=== PATIENT | female | born 1955 | race Caucasian/White ===

== ENCOUNTER 2017-03-12 14:53 | Emergency (ER) | payer OTHER ==
--- NOTE | 2017-03-12 15:11 | PDOC ---
History of Present Illness - General History Source: Patient Exam Limitations: No Limitations - History of Present Illness Initial Comments: 03/12/17 16:04 The patient is a 61 year old female, with a significant past medical history of lymphoma, PTSD/depression/anxiety, GERD, hypothyroidism, asthma/RAD, and bilateral mastectomies, who presents to the emergency department via ambulance status post a fall on the treadmill prior to arrival. The patient reports that she was on the treadmill this afternoon when the speed suddenly increased and she was unable to slow the machine down and fell face first onto the treadmill ramp. She reports that she face planted on her nose and believes it might be broken. She denies any nosebleed or loss of consciousness. She also reports left sided neck stiffness rating a 5/10 in severity and left knee pain due to a skinned knee. She denies chest pain, abdominal pain, shortness of breath, headache and dizziness. Patient is not on any blood thinners Allergies: none Past surgical history: bilateral mastectomies, Social history: Former smoker <Apolonia Sandoval - Last Filed: 03/12/17 16:04> <Les Salinas - Last Filed: 03/12/17 19:05> - General Chief Complaint: Injury Stated Complaint: FELL ON FACE Time Seen by Provider: 03/12/17 15:10 Past History <Apolonia Sandoval - Last Filed: 03/12/17 16:04> - Past Medical History Asthma: Yes Cancer: Yes (BREAST CA) Thyroid Disease: Yes - Psycho/Social/Smoking Cessation Hx Anxiety: No Suicidal Ideation: No Smoking Status: Yes Smoking History: Former smoker Number of Cigarettes Smoked Daily: 0 <Les Salinas - Last Filed: 03/12/17 19:05> - Past Medical History Allergies/Adverse Reactions: Allergies Allergy/AdvReac Type Severity Reaction Status Date / Time No Known Allergies Allergy Verified 06/23/13 16:10 Home Medications: Ambulatory Orders Bupropion HCl [Wellbutrin Xl -] 300 mg PO DAILY 06/23/13 Duloxetine HCl [Cymbalta -] 120 mg PO DAILY 06/23/13 Meclizine HCl [Antivert -] 25 mg PO TID #21 tablet 06/23/13 Ondansetron [Zofran *Odt*] 4 mg SL TID PRN #14 od.tablet 06/23/13 Rabeprazole Sodium [Aciphex (Nf) 20 MG] 20 mg PO DAILY 06/23/13 Salmeterol/Fluticasone [Advair 100Mcg/50Mcg -] 1 inh PO BID 06/23/13 Thyroid,Pork [[place] Thyroid] 1 tab PO DAILY 06/23/13 Review of Systems - Review of Systems Able to Perform ROS?: Yes Comments:: 03/12/17 16:04 CONSTITUTIONAL: Absent: fever, no chills, no fatigue EYES: Absent: visual changes ENT: +Nose pain (possible broken nose) Absent: ear pain, no sore throat CARDIOVASCULAR: Absent: chest pain, no palpitations RESPIRATORY: Absent: cough, no SOB GI: Absent: abdominal pain, no nausea, no vomiting, no constipation, no diarrhea GENITOURINARY: Absent: dysuria, no frequency, no hematuria MUSKULOSKELETAL: +Left sided neck stiffness, +Left knee pain Absent: back pain SKIN: Absent: rash NEURO: Absent: headache <Apolonia Sandoval - Last Filed: 03/12/17 16:04> *Physical Exam - Vital Signs Last Vital Signs Temp Pulse Resp BP Pulse Ox 98.1 F 69 20 121/80 99 03/12/17 14:54 03/12/17 14:54 03/12/17 14:54 03/12/17 14:54 03/12/17 14:54 - Physical Exam Comments: 03/12/17 16:05 GENERAL: Well developed, well nourished. Awake and alert. No acute distress. HEENT:+ Swelling and deformity at the bridge of the nose, but no signs of obstruction to breathing. There is no blood apparent in either of her nostrils. No bruises, no ecchymosis, no hematomas, no abrasions, no lacerations to the face or scalp. Pupils 4mms equal and reactive and the fundi were benigni with sharp disk margins and good central venous pulsations. Normocephalic, atraumatic. No conjunctival pallor. Sclera are non-icteric. Moist mucous membranes. NECK: Cervical spine is without tenderness or deformity. Good range of motion with minimal pain. Supple. Full ROM. No JVD. No thyromegaly. No lymphadenopathy. CARDIOVASCULAR: Regular rate and rhythm. No murmurs, rubs, or gallops. Distal pulses are 2+ and symmetric. PULMONARY: No evidence of respiratory distress. Lungs clear to auscultation bilaterally. No wheezing, rales or rhonchi. No tenderness or deformity of the rib cage or the chest wall. ABDOMINAL: Soft. Non-tender. Non-distended. No rebound or guarding. No organomegaly. Normoactive bowel sounds. MUSCULOSKELETAL: Lumbosacral spine has normal lordosis and no signs of trauma or inflammation. Normal range of motion at all joints. No bony deformities or tenderness. No CVA tenderness. EXTREMITIES: +Right upper extremity 4+ edema that is chronic and due to prior surgery. No open lesions, full range of motion without restriction of the shoulder, hip, and all other joints. No visible or palpable signs of fracture in the extremities. No calf tenderness. SKIN: +Superficial abrasion over the right patella. Warm and dry. Normal capillary refill. No rashes. No jaundice. NEUROLOGICAL: Alert, awake, appropriate. Cranial nerves 2-12 intact. No deficits to light touch and temperature in face, upper extremities and lower extremities. No motor deficits in the in face, upper extremities and lower extremities. Normoreflexic in the upper and lower extremities. Normal speech. Toes are down- going bilaterally. Gait is normal without ataxia. PSYCHIATRIC: Cooperative. Good eye contact. Appropriate mood and affect. <Apolonia Sandoval - Last Filed: 03/12/17 16:04> Medical Decision Making - Medical Decision Making 03/12/17 19:01 Patient fell with impact to her nose. There is swelling of the bridge of her nose, but no obvious fracture or deformity deformity on x-ray. Official reading by the radiologist is pending. Physical exam reveals no sign of trauma to the head or neck. Neurological exam is normal. Gait stable and unimpaired. Fully ambulatory and in no pain or other discomfort upon discharge to follow-up with her primary physician <Les Salinas - Last Filed: 03/12/17 19:05> *DC/Admit/Observation/Transfer - Attestations Scribe Attestion: 03/12/17 16:05 Documentation prepared by RALF Hart, acting as ophthalmic medical technologist for Les Salinas MD. <Apolonia Sandoval - Last Filed: 03/12/17 16:04> <Les Salinas - Last Filed: 03/12/17 19:05> Diagnosis at time of Disposition: Nasal fracture Qualifiers: Encounter type: initial encounter Fracture type: closed Qualified Code(s): S02.2XXA - Fracture of nasal bones, initial encounter for closed fracture - Discharge Dispostion Disposition: HOME Condition at time of disposition: Stable - Referrals Referrals: Lucas Tovar MD [Staff Physician] - - Patient Instructions Printed Discharge Instructions: DI for Closed Head Injury
[2017-03-12 15:14] VITALS: BP 121/80; PULSE 69; TEMP 98.1; BMI 32.5
[2017-03-12] MEDS ORDERED: ACETAMINOPHEN 325 MG TABLET (FP) PO ONE (16:38)
[2017-03-12] MEDS ORDERED: ACETAMINOPHEN 325 MG TABLET (FP) ONE (16:52)
== END 2017-03-12 18:40 | disposition home or self-care (01) ==
LOC: FER 14:53
DX: S02.2XXA Fracture of nasal bones, initial encounter for closed fracture (principal); W01.0XXA Fall on same level from slipping, tripping and stumbling without subsequent striking against object, initial encounter; Y93.A1 Activity, exercise machines primarily for cardiorespiratory conditioning; Y92.9 Unspecified place or not applicable; Z87.891 Personal history of nicotine dependence; Z85.3 Personal history of malignant neoplasm of breast; F41.9 Anxiety disorder, unspecified; J45.909 Unspecified asthma, uncomplicated
CPT/HCPCS: 70160-TC; 99281-25